=== PATIENT | male | born 1975 | race African-American/Black ===

== ENCOUNTER 2019-01-28 09:11 | Emergency (ER) | payer BC ==
[~2019-01-28] VITALS: Ht 190.5 cm; Wt 149.7 kg
[2019-01-28] MEDS ORDERED: IBUPROFEN 400 MG TAB PO ONE (09:30)
[2019-01-28] MEDS ORDERED: ACETAMINOPHEN 325 MG TAB PO ONE (09:30)
== END 2019-01-28 10:45 | disposition home or self-care (01) ==
LOC: FSED 09:11
DX: R50.9 Fever, unspecified (principal); R05 Cough; J11.1 Influenza due to unidentified influenza virus with other respiratory manifestations; J31.0 Chronic rhinitis
CPT/HCPCS: 83518; 87400; 99283